=== PATIENT | male | born 1980 | race Caucasian/White ===

== ENCOUNTER 2019-02-03 14:48 | Emergency (ER) | payer SELFPAY ==
[~2019-02-03] VITALS: Ht 177.8 cm; Wt 79.5 kg
[2019-02-03 14:51] VITALS: BP 124/85; TEMP 98.3
[2019-02-03] MEDS ORDERED: CEPHALEXIN500 M1 PO (16:14)
[2019-02-03 16:29] VITALS: PULSE 93
== END 2019-02-03 16:29 | disposition home or self-care (01) ==
LOC: COL.ER 14:48
DX: L72.3 Sebaceous cyst (principal); F17.210 Nicotine dependence, cigarettes, uncomplicated

== ENCOUNTER 2020-04-01 19:29 | Emergency (ER) | payer SELFPAY ==
[~2020-04-01] VITALS: Ht 177.8 cm; Wt 86.4 kg
[~2020-04-01 19:29] MED LIST: CEPHALEXIN500 M1 PO
[2020-04-01 19:34] VITALS: BP 101/70; TEMP 98.4
[2020-04-01 21:22] VITALS: PULSE 78
== END 2020-04-01 21:22 | disposition home or self-care (01) ==
LOC: COL.ER 19:29
DX: S61.411A Laceration without foreign body of right hand, initial encounter (principal); F17.210 Nicotine dependence, cigarettes, uncomplicated; X58.XXXA Exposure to other specified factors, initial encounter

== ENCOUNTER 2020-12-15 15:03 | Emergency (ER) | payer SELFPAY ==
[~2020-12-15] VITALS: Ht 177.8 cm; Wt 86.4 kg
[2020-12-15 15:57] VITALS: TEMP 98.3
[2020-12-15] MEDS ORDERED: BACTRIM DS 8001 TAB PO (17:30)
[2020-12-15] MEDS ORDERED: DOXYCYCLINE 10100 MG PO (17:34)
[2020-12-15 18:01] VITALS: BP 105/60; PULSE 87
== END 2020-12-15 18:05 | disposition home or self-care (01) ==
LOC: COL.ER 15:03
DX: L02.31 Cutaneous abscess of buttock (principal)

== ENCOUNTER 2020-12-24 07:08 | Emergency (ER) | payer SELFPAY ==
[~2020-12-24] VITALS: Ht 177.8 cm; Wt 86.4 kg
[~2020-12-24 07:08] MED LIST changes: +BACTRIM DS 8001 TAB PO; +DOXYCYCLINE 10100 MG PO
[2020-12-24 07:36] VITALS: BP 146/80; TEMP 98.2
[2020-12-24 09:04] VITALS: PULSE 79
== END 2020-12-24 09:04 | disposition home or self-care (01) ==
LOC: COL.ER 07:08
DX: S41.011A Laceration without foreign body of right shoulder, initial encounter (principal); F17.210 Nicotine dependence, cigarettes, uncomplicated; Z23 Encounter for immunization; W19.XXXA Unspecified fall, initial encounter; W22.8XXA Striking against or struck by other objects, initial encounter

== ENCOUNTER 2021-01-25 06:38 | Emergency (ER) | payer SELFPAY ==
[~2021-01-25] VITALS: Ht 180.3 cm; Wt 86.4 kg
[2021-01-25 06:57] VITALS: TEMP 97.6
[2021-01-25] MEDS ORDERED: PERCOCET 325 MG1 TA2 PO (07:33)
[2021-01-25] MEDS ORDERED: AMOXICILLIN 50500 MG PO (07:33)
[2021-01-25 08:08] VITALS: BP 139/86; PULSE 60
== END 2021-01-25 08:11 | disposition home or self-care (01) ==
LOC: COL.ER 06:38
DX: K08.89 Other specified disorders of teeth and supporting structures (principal); F17.200 Nicotine dependence, unspecified, uncomplicated